=== PATIENT | female | born 1980 | race Caucasian/White ===

== ENCOUNTER 2017-05-28 06:06 | Day surgery (SDC) | payer BC ==
[2017-05-28] MEDS ORDERED: MIDAZOLAM 1 MG/ML 2 ML INJ ×2 (07:54→07:55)
[2017-05-28] MEDS ORDERED: FENTAnyl 50 MCG/ML VIAL (07:54)
== END 2017-05-28 12:15 | disposition home or self-care (01) ==
LOC: GIL 06:06
DX: K21.9 Gastro-esophageal reflux disease without esophagitis (principal); K29.60 Other gastritis without bleeding
CPT/HCPCS: 43239; 84703; 87081